=== PATIENT | male | born 2000 | race Asian ===

== ENCOUNTER 2019-03-16 21:26 | Emergency (ER) | payer OTHER ==
[~2019-03-16] VITALS: Ht 175.3 cm; Wt 106.6 kg
--- NOTE | 2019-03-16 21:35 | NUR ---
pt here by self. pt alert [facility] 15. dr alberto pt same time. 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 pt has partial thickness minor bleeding controlled with direct pressure laceration to left thumb pad. dr vann wound at 2137. pt relates last tetnaus less then 5 yrs ago. done dolly pt 2139.
--- NOTE | 2019-03-16 21:44 | ED Upper Extremity ---
General Stated Complaint: L THUMB LAC Source: patient Exam Limitations: no limitations History of Present Illness Date Seen by Provider: Mar 16, 2019 Time Seen by Provider: 21:41 Initial Comments To ER with laceration to the distal pad of the left thumb from a can of odette just prior to arrival. Tetanus is up-to-date. Onset: just prior to arrival Severity: moderate Pain/Injury Location: left thumb Method of Injury: other Allergies and Home Medications Patient Home Medication List Home Medication List Reviewed: Yes Review of Systems Constitutional: see HPI EENTM: see HPI Respiratory: no symptoms reported Cardiovascular: no symptoms reported Genitourinary: no symptoms reported Musculoskeletal: no symptoms reported Skin: no symptoms reported Psychiatric/Neurological: No Symptoms Reported Past Rvaykvb-Gihbsn-Dofpfx Hx Patient Social History Recent Foreign Travel: No Contact w/Someone Who Travel: No Physical Exam Vital Signs Capillary Refill : General Appearance: WD/WN, no apparent distress HEENT: PERRL/EOMI, normal ENT inspection Neck: non-tender, full range of motion Respiratory: no respiratory distress, no accessory muscle use Shoulder: normal inspection, non-tender Elbow/Forearm: normal inspection, non-tender Hand: Left, laceration (superficial 1 cm laceration with active bleeding to the pad of the thumb at the distal phalanx.) Neurologic/Tendon: normal sensation Neurologic/Psychiatric: alert, normal mood/affect, oriented x 3 Skin: normal color, warm/dry Departure Communication (Admissions) Finger tourniquet was applied, this was cleaned, closed with glue Impression Primary Impression: Thumb laceration Qualified Codes: S61.012A - Laceration without foreign body of left thumb without damage to nail, initial encounter Disposition: 01 HOME, SELF-CARE Condition: Stable Departure-Patient Inst. Decision time for Depature: 21:43 Referrals: [facility] (PCP/Family) Primary Care Physician Patient Instructions: Laceration Repair With Glue (DC) Add. Discharge Instructions: 1. This glue will follow off on its own in 3-5 days. You can shower allowing water run over this but don't soak it in water such as a roommate, hot, bath tub, swimming pool. Do not apply any antibiotic ointment to this, it will dissolve the glue. DULCE LICONA APRN Mar 16, 2019 21:44
[2019-03-16 21:51] VITALS: BP 158/93
--- NOTE | 2019-03-16 21:51 | NUR ---
d/c instructions to pt. told to read all papers. no scripts given. pt left ambulatory by self. pt knows f/u. i went over the handtyped by information on the chart. pt had no iv.
--- OUTSIDE RECORDS SUMMARY | 2019-03-17 02:22 | XMS REPORT ---
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
== END 2019-03-16 21:53 | disposition home or self-care (01) ==
LOC: ER 21:28
DX: S61.012A Laceration without foreign body of left thumb without damage to nail, initial encounter (principal); W26.8XXA Contact with other sharp object(s), not elsewhere classified, initial encounter